=== PATIENT | female | born 1965 | race Caucasian/White ===

== ENCOUNTER 2020-10-29 06:52 | Outpatient (CLI) | payer BC, SELFPAY ==
--- NOTE | ~2020-10-29 | CT_ITS ---
EXAMINATION: CT sinus wo con EXAM DATE: 10/29/2020 07:15 INDICATION: J32.9 - Chronic sinusitis, unspecified. TECHNIQUE: Spiral CT of the sinuses was acquired in the axial plane. Coronal and sagittal reformatte d images were also reviewed. The dose-length product (DLP) for this examination was 312.93 mGy-cm. Iterative reconstruction (ASIR) was used as dose reduction technique. There is no prior study for co mparison. FINDINGS: The sinuses are normally developed. Mild mucoperiosteal thickening inferior aspect of th e right maxillary sinus. The ostiomeatal units are patent. There is right sphenoid sinus wall thickening indicating a history of prior chronic sinus disease. T here is mild leftward nasal septal deviation. The mastoid air cells and middle ears are well aerated . External auditory canals are patent. The orbits and visualized soft tissues are unremarkable. IMPRESSION: 1. Mild right maxillary sinus mucoperiosteal thickening. 2. Mild leftward nasal septal deviation. Reviewed, dictated and finalized at location A. PER HANDS SPRAYER
== END 2020-10-29 06:53 | disposition home or self-care (01) ==
LOC: ANHIMG 07:00
PROVIDERS: PCP Physician Assistant Medical; Visit Provider Otolaryngology
DX: J32.9 Chronic sinusitis, unspecified (principal); J34.2 Deviated nasal septum
CPT/HCPCS: 70486

== ENCOUNTER 2021-03-04 15:15 | Outpatient (RCR) | payer BC, SELFPAY ==
--- NOTE | 2021-01-27 10:27 | PTOPEVAL ---
PHYSICAL THERAPY EVALUATION AND PLAN OF CARE 01-27-21 Thank you for referring Maritza Davila to [facility], for the diagnosis of BPPV, vestibular rehab.? Her treatment plans includes treatment for her cervical pain and headaches. The plan of care is for 2x/week for 5 weeks. Please review, sign, date and return this plan of care LISE. I agree with and certify that the following plan of care is medically necessary. Referring Physician Date Attending Provider: Madan Vazquez MD *PT Outpatient Evaluation Document 01/27/21 09:05 JARRED (Rec: 01/27/21 10:27 JARRED [id number]) Outpatient Past Medical History Past Medical History Source of Past Medical History Patient Neurological History Hx Migraine Yes: cluster headaches Cardiovascular History Hx Hypercholesterolemia Yes: on meds Respiratory History Hx Asthma Yes Hx Other Respiratory Disorders Yes: sinus infections- 4-5 x/ yr; seasonal allergies Gastrointestinal History Hx Cholecystectomy Yes Hx Diverticulosis Yes Genitourinary History Hx Kidney Stones Yes: watching kidney stones Musculoskeletal History Hx Arthritis Yes: wrist,knees,LBP Hx Back Pain Yes: sacroiliac pain Hx Orthopedic Surgery Yes: L knee arthroscopy Endocrine History Hx Diabetes Yes: meds- problems controlling blood sugar, work with dr on meds HEENT History Hx Other HEENT Disorders Yes: wear glasses, trifocal- problems moving head to get correct vision Integumentary History Hx Cellulitis Yes: R leg cellulitis/ osteomyelitis R toe Reproductive History Hx Other Reproductive Disorders Yes: perimenapausal- hormone changes Psychosocial History Hx Anxiety Yes: on meds Pain History Has Past Pain Affected Your Daily Life Yes: chronic back, neck and knee pain Other History Hx Other Medical Conditions Yes: obesity Evaluation Information Problem Diagnosis BPPV Onset October 2019 Prior Level of Function Activity Level (Last 3 Months) 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
--- NOTE | 2021-02-11 16:00 | PCPTNOTE ---
pt called and canceled today's treatment session;
--- NOTE | 2021-02-22 13:29 | PCPTNOTE ---
Patient called & cancelled scheduled appointment this date due to not feeling well.
--- NOTE | 2021-03-04 15:54 | PTOPEVAL ---
PHYSICAL THERAPY DISCHARGE 03-04-21 Refer to the clinical summary below, for her status with today's reassessment to the initial evaluation. The goals were achieved, except grocery shopping--she has not been due to getting delivery services. Thank you for referring Maritza Davila to [facility].? Please review, sign, date and return this Discharge LISE. I agree with and certify that the following plan of care is medically necessary. Referring Physician Date Attending Provider: Madan Vazquez MD Document 03/04/21 15:15 JARRED (Rec: 03/04/21 15:54 JARRED [id number]) Assessment Status Discharge Subjective Information Ms. Davila reports: the Query Text:As Reported By Patient/ exercises are helping; pleased Family with her progress; driving in town about 10 minutes; have not been in the [employer] yet- using delivery service; doing cooking and kitchen chores--slower pace and doing OK; some vacuuming, picking things up off floor OK; head feels OK, sometimes stopped up with weather and allergies; watching blood sugar; have not had any spinning episodes; able to scroll on her phone and computer without any issues; feeling better and have started applying for jobs , want to return to work; agree with discharge from PT and to continue with exercises . Pain Assessment Timing of Pain Assessment Timing of Pain Assessment Assessment Pain Scale Pain Scale Used Numeric (1 - 10) Self Report Pain Assessment Bilateral Spine, Thoracic Reported Pain Level 2 Pain Frequency Chronic,Continuous Lowest Pain Intensity 2 Greatest Pain Intensity 8 Other Pain Aggravating Factors sleep funny and hurt when wake up; Pain Score Pain Score 2: Self Report Additional Pain Score Comments have not had any headaches for past 2-3 weeks; Interventions Used Interventions Used By Clinicians Education,Exercise Posture Posture Sitting Position Posture Evaluation View Posterior Head/C-Spine Posture Forward Head Thoracic Spine Posture Increased Kyphosis Shoulder Posture (L) Rounded,(R) Rounded Additional Posture Comments slightly rounded shoulders;
== END 2021-03-05 08:07 | disposition home or self-care (01) ==
LOC: ANHPT 15:15
PROVIDERS: PCP Physician Assistant Medical; Visit Provider Otolaryngology
DX: H81.10 Benign paroxysmal vertigo, unspecified ear (principal)
CPT/HCPCS: 97110; 97162

== ENCOUNTER → 2021-09-25 08:21 | Outpatient (CLI) | payer BC, SELFPAY ==
--- NOTE | ~2021-09-25 | MR_ITS ---
EXAMINATION: MR lumbar spine wo con DATE: 09/25/2021 09:26 INDICATION: Low back pain, unspecified. TECHNIQUE: Magnetic resonance imaging (MRI) of the lumbar spine was performed without intravenous con trast. Sequences included sagittal T2-weighted FSE, sagittal T2-weighted FS FSE, sagittal T1-weighted FSE, and axial T2-weighted FSE. COMPARISON: None FINDINGS: There is 3 degrees levocurvature of lumbar spine. There is 2 mm anterolisthesis of L3 on L4 . There are Schmorl's nodes at T11-T12. There is mildly decreased disc height at L4-L5. The distal sp inal cord signal intensity is normal. The conus medullaris is at L1. The following disc levels are sp ecifically discussed: L1-L2: The disc does not extend beyond the endplate margin. There is severe bilateral facet joint ost eoarthritis. There is no neural foraminal stenosis. There is no central canal stenosis. L2-L3: The disc does not extend beyond the endplate margin. There is moderate bilateral facet joint o steoarthritis. There is no neural foraminal stenosis. There is no central canal stenosis. L3-L4: The disc is mildly bulging. There is severe bilateral facet joint osteoarthritis. There is a s ynovial cyst from right facet joint in the epidural space. There is mild bilateral neural foraminal s tenosis. There is mild central canal stenosis. L4-L5: The disc is bulging and has an annular fissure. There is moderate bilateral facet joint osteoa rthritis. There is mild bilateral neural foraminal stenosis. There is no central canal stenosis. L5-S1: The disc is bulging and has an annular fissure. There is moderate bilateral facet joint osteoa rthritis. There is mild bilateral neural foraminal stenosis. There is mild central canal stenosis. IMPRESSION: 1. Mild lumbar spondylosis. Reviewed, dictated and finalized at location A. TING ENTRYMAN IMPRESSION: 1. Mild lumbar spondylosis.
== END ==
PROVIDERS: PCP Physician Assistant Medical; Visit Provider Nurse Practitioner Family
DX: M54.50 Low back pain, unspecified (principal); R29.898 Other symptoms and signs involving the musculoskeletal system; M47.816 Spondylosis without myelopathy or radiculopathy, lumbar region
CPT/HCPCS: 72148

== ENCOUNTER 2022-09-20 19:49 | Emergency (ER) | payer OTHER, SELFPAY ==
[2022-09-20 20:23] VITALS: BP 155/87; PULSE 94; RESP 16; TEMP 36.6; O2SAT 99
[2022-09-20 23:51] VITALS: O2SAT 96
[2022-09-21 01:02] LABS: Influenza A QL RT-PCR Negative (Negative); Influenza B QL RT-PCR Negative (Negative); SARS-CoV-2 RNA PCR Negative
--- NOTE | 2022-09-21 01:33 | ED.GENADULT ---
HPI - General Adult General Chief complaint: Upper Respiratory Infection <Brittany Schmid PA-C - Last Filed: 09/21/22 03:03> Stated complaint: dizziness, nausea and fatigue - covid 2 weeks ago <Brittany Schmid PA-C - Last Filed: 09/21/22 03:03> Time Seen by Provider: 09/20/22 23:59 <LUPE Merida Last Filed: 09/21/22 03:03> Source: patient <LUPE Merida Last Filed: 09/21/22 03:03> Mode of arrival: ambulatory <LUPE Merida Last Filed: 09/21/22 03:03> Limitations: no limitations <LUPE Merida Last Filed: 09/21/22 03:03> History of Present Illness HPI narrative: Patient is a 57 y/o female who presents to the ED with multiple complaints. Patient reports she was diagnosed with COVID-19 2 weeks ago. She has had persistent mild cough, sinus pressure, congestion. She has intermittently been taking Tylenol sinus medication at home with minimal relief. Patient also reports having nausea, dizziness, DUKES, myalgias. She states the dizziness is a chronic issue for her, but has been worse with these sinus issues. She states she has a hard time getting through a full day of work due to the nausea. She has not seen her primary care doctor for the symptoms. No fever, vomiting, abdominal pain, CP, SOB. <ULPE Merida Last Filed: 09/21/22 03:03> Related Data Home medications: Home Medications Medication Instructions Recorded Confirmed lisinopril 5 mg tablet 5 mg PO DAILY 07/07/20 07/18/22 alpha lipoic acid 200 mg capsule 200 mg PO DAILY 07/08/20 07/18/22 biotin 10,000 mcg capsule mcg PO 07/08/20 07/18/22 cholecalciferol (vitamin D3) 50 50 mcg PO DAILY 07/08/20 07/18/22 mcg (2,000 unit) capsule diphenhydramine HCl [Benadryl] PO 07/08/20 07/18/22 flaxseed oil 1,000 mg capsule 1,000 mg PO DAILY 07/08/20 07/18/22 multivitamin 1 cap PO DAILY 07/08/20 07/18/22 naproxen sodium 220 mg capsule 220 mg PO BID PRN 07/08/20 07/18/22 (Aleve) omega-3 fatty acids 1,000 mg 1,000 mg PO DAILY 07/08/20 07/18/22 capsule (Fish Oil Concentrate) <Brittany Schmid PA-C - Last Filed: 09/21/22 03:03> Allergies/adverse reactions: Allergies Allergy/AdvReac Type Severity Reaction Status Date / Time ceftriaxone [From Rocephin] Allergy Severe Rash Verified 07/18/22 15:36 morphine Allergy Severe Vomiting Verified 07/18/22 15:36 acetaminophen [From Vicodin] Allergy Unknown Vomiting Verified 07/18/22 15:36 Penicillins Allergy Unknown Rash Verified 07/18/22 15:36 surgical glue Allergy Intermediate contact Uncoded 07/18/22 16:07 dermatitis <Brittany Schmid PA-C - Last Filed: 09/21/22 03:03> Review of Systems Review of Systems: CONSTITUTIONAL: Denies fever, chills, or sweats. EYES: Denies visual changes. ENT: Reports congestion, sinus pressure. CARDIOVASCULAR: Denies chest pain. RESPIRATORY: Reports mild cough. Denies dyspnea. GASTROINTESTINAL: Reports nausea. Denies abdominal pain, vomiting, or diarrhea. GENITOURINARY: Denies dysuria or hematuria. SKIN: Denies rash or itching. MUSCULOSKELETAL: Reports myalgia. NEUROLOGIC: Reports DUKES, dizziness. Denies numbness, or weakness. 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
[2022-09-21 01:43] VITALS: BP 107/49; BP 140/79; PULSE 79; PULSE 94
[2022-09-21 01:45] VITALS: BP 126/85; PULSE 94
[2022-09-21] MEDS: IBUPROFEN 600 MG TABLET PO (01:46)
[2022-09-21] MEDS: ONDANSETRON HCL ODT 4 MG TABLET PO (01:46)
[2022-09-21] MEDS: MECLIZINE HCL 25 MG TABLET PO (01:46)
== END 2022-09-21 03:09 | disposition home or self-care (01) ==
PROVIDERS: Physician Assistant; Emergency Provider Emergency Medicine; PCP Physician Assistant Medical
DX: R42 Dizziness and giddiness (principal); R11.0 Nausea; L98.8 Other specified disorders of the skin and subcutaneous tissue; Z20.822 Contact with and (suspected) exposure to COVID-19; F41.9 Anxiety disorder, unspecified; M19.90 Unspecified osteoarthritis, unspecified site; J45.909 Unspecified asthma, uncomplicated; F32.9 Major depressive disorder, single episode, unspecified; E11.9 Type 2 diabetes mellitus without complications
CPT/HCPCS: 87636; 99283; A9270